=== PATIENT | male | born 1945 | race Caucasian/White ===

== ENCOUNTER → 2018-02-27 | Outpatient (CLI) | payer MEDICARE ==
[~2018-02-27] MED LIST: ASPIRIN EC325 M1 PO; ASPIRIN EC81 M1 PO; CARDIZEM CD180 MG PO; CARDIZEM CD240 MG PO; CENTRUM SILVER1 EAC4 PO; CINSULIN; CIPRO500 MG PO; COLACE100 MG PO; CRESTOR; CRESTOR10 MG PO; ELIQUIS5 MG PO; FLOMAX0.4 MG PO; FOLIC ACID1 MG PO; IBUPROFEN 800800 M1 PO; LANSOPRAZOLE30 MG PO; NORCO 5-325 TA1 EACH PO; PREVACID15 MG PO; PRINIVIL10 MG PO; PYRIDIUM200 M2 PO; Prevacid; TOPROL XL50 MG PO; ZANTAC 150MG T150 M1
[2018-02-27 09:56] LABS: ALBUMIN 3.7 g/dL (3.4-5.0); CREATININE 1.8 mg/dL (0.6-1.3); POTASSIUM 4.1 mmol/L (3.5-5.1); TOTAL BILIRUBIN 2.2 mg/dL (<0.1-1.0); TOTAL PROTEIN 7.1 g/dL (6.4-8.2)
[2018-02-28 05:11] LABS: HEPATITIS B SURFACE AG Negative (Negative)
== END ==
LOC: M.ULTRA 09:13
PROVIDERS: Nurse Practitioner Adult Health
DX: N28.1 Cyst of kidney, acquired (principal); R16.2 Hepatomegaly with splenomegaly, not elsewhere classified; R53.83 Other fatigue; I10 Essential (primary) hypertension; I48.91 Unspecified atrial fibrillation; E78.5 Hyperlipidemia, unspecified; Z79.899 Other long term (current) drug therapy

== ENCOUNTER → 2018-04-15 | Outpatient (CLI) | payer MEDICARE ==
--- NOTE | 2018-04-17 08:46 | PF ---
[address] [address] PULMONARY FUNCTION REPORT Name: STEWARTERLINDA Room: [facility]#: [id number] Admission: 04/15/18 Attend Phys: MILO Ramsey Discharge: Date of : 45 Report #: [id number] THIS REPORT FOR: //name// CC: Oliver Stout REFERRING PHYSICIAN: MILO Calderon/Oliver Hoang DO TYPE OF STUDY: pulmonary function test. SPIROMETRY: The FEV1/FVC ratio was 76%. The FEV1 was 88% at 3.11 liter. His FVC was 4.01 liter at 83% predicted. Total lung capacity was 69% predicted at 5.29 liters. DLCO was 62% predicted. IMPRESSION: The above pulmonary function test demonstrates restrictive pulmonary defect of mild to moderate degree. No definite obstructive defect. DLCO borderline. <ELECTRONICALLY SIGNED> By: Saad Jaquez MD 04/17/18 [id number] Jaquez MD /nt
== END ==
LOC: M.PUL 11:26
DX: R06.02 Shortness of breath (principal); R05 Cough; I10 Essential (primary) hypertension